=== PATIENT | female | born 1950 | race Caucasian/White ===

== ENCOUNTER → 2019-05-17 10:49 | Outpatient (CLI) | payer OTHER, SELFPAY ==
--- NOTE | ~2019-05-17 | XR_ITS ---
EXAMINATION: [id number]_CR DATE: 05/17/2019 11:21 INDICATION: Left anterior rib pain. Fall. TECHNIQUE: A frontal view of the chest and 3 views of the right ribs and 3 views of the left ribs wer e obtained. COMPARISON: Chest 2 views 04/02/2017 FINDINGS: The chest demonstrates clear lungs without pneumonia, pleural effusion, or pneumothorax. Th e heart size is normal. IMPRESSION: 1. No rib fracture. Reviewed, dictated and finalized at location A. [employer] IMPRESSION: 1. No rib fracture.
== END ==
PROVIDERS: PCP Nurse Practitioner Family; Visit Provider Nurse Practitioner Family
DX: R07.81 Pleurodynia (principal)
CPT/HCPCS: 71111

== ENCOUNTER 2019-05-18 13:36 | Emergency (ER) | payer OTHER, SELFPAY ==
[2019-05-18 13:48] VITALS: BP 140/70; PULSE 96; RESP 20; TEMP 36.5; O2SAT 94
--- NOTE | 2019-05-18 14:20 | ED.URI ---
HPI - URI/Sore Throat General Chief Complaint: Upper Respiratory Infection Stated Complaint: Sore Throat Time Seen by Provider: 05/18/19 14:15 Source: patient Mode of arrival: ambulatory Limitations: no limitations History of Present Illness HPI Narrative: Maliha Beck is a 69-year-old female with a primary medical history of schizophrenia, high cholesterol, high blood pressure, who comes to the [facility] with nasal congestion ear pain and sore throat That started 2 days ago Related Data Home Medications Medication Instructions Recorded Confirmed benztropine 1 mg PO DAILY 05/18/19 05/18/19 loxapine succinate 25 mg PO DAILY 05/18/19 05/18/19 meloxicam 7.5 mg PO DAILY 05/18/19 05/18/19 ondansetron 8 mg PO TID 05/18/19 05/18/19 propranolol 40 mg PO Q12H 05/18/19 05/18/19 simvastatin 40 mg PO DAILY 05/18/19 05/18/19 tramadol 50 mg PO TID 05/18/19 05/18/19 trazodone 50 mg PO HS 05/18/19 05/18/19 vitamin E 1,000 unit PO DAILY 05/18/19 05/18/19 Allergies Allergy/AdvReac Type Severity Reaction Status Date / Time Penicillins Allergy Unknown HIVES Verified 05/13/18 11:46 Review of Systems Review of Systems: Narrative: CONSTITUTIONAL: Denies fever, chills, sweats. EYES: Denies visual changes, redness, discharge. ENT has rhinorrhea, congestion, sore throat, bilateral otalgia. CARDIOVASCULAR: Denies chest pain, palpitations, edema. RESPIRATORY: Denies dyspnea, wheezing, mild cough GASTROINTESTINAL: Denies abdominal pain, nausea, vomiting, diarrhea. GENITOURINARY: Denies dysuria, hematuria, abnormal discharge SKIN: Denies rash or itching. MUSCULOSKELETAL: Denies acute back pain, joint pain, or myalgia. NEUROLOGIC: Denies numbness, or focal weakness. PSYCHIATRIC: Denies anxiety or depression. [facility] Family History Family History (Updated 05/18/19 @ 14:22 by Giselle Laguerre CNP) Other Mental illness in member of household Social History Social History (Updated 05/18/19 @ 14:22 by Giselle Laguerre CNP) Smoking packs per day: 2 Smoking cigarettes per day: 40.0 Smoking status: Current every day smoker Alcohol intake: former Gender identity (if verbalized by the patient): Female Comments At time of signature, I agree with nursing past medical, surgical, social and family history. There is no relevant family history pertinent to the presenting complaint. Exam Narrative: Exam Narrative: GENERAL: This is a well-nourished, well-developed patient, in mild distress. HEAD: normocephalic, atraumatic. EYES: . Sclera clear/white. Vision is grossly intact. EARS: External ears normal, auditory canals reddened and without drainage, TMs normal without perforation, bulging right TM hearing grossly intact. NOSE: External nose normal with nasal discharge, nares without redness, mild rhinorrhea. THROAT: Mucous membranes moist, posterior pharynx erythema NECK: Neck supple, non-tender CARDIOVASCULAR: Regular rate and rhythm without murmurs, gallops, or rubs. RESPIRATORY: Clear to auscultation. Breath sounds equal bilaterally. No wheezes, rales, or rhonchi. GASTROINTESTINAL: Abdomen soft, non-tender, nondistended. Bowel sounds are active. No hepato-splenomegaly, or palpable masses. No guarding. SKIN: warm, intact with no suspicious lesions or rash, good texture and turgor. NEURO: awake, alert, and oriented to person, place and time. There were no obvious focal neurologic abnormalities. Steady gait EXTREMITIES: Normal range of motion. No edema. BACK: Nontender without deformity or crepitance. No flank tenderness. Course Course Emergency Course: Viral syndrome versus otitis media versus pharyngitis versus influenza Vital Signs Vital signs: Vital Signs Temperature 97.7 F 05/18/19 13:48 Pulse Rate 96 05/18/19 13:48 Respiratory Rate 20 05/18/19 13:48 Blood Pressure 140/70 05/18/19 13:48 Pulse Oximetry 94 05/18/19 13:48 Temperature 97.7 F 05/18/19 13:48 Pulse Rate 96 05/18/19 13:48 Respirator
== END 2019-05-18 14:32 | disposition home or self-care (01) ==
PROVIDERS: Emergency Provider Nurse Practitioner; PCP Family Medicine
DX: H66.001 Acute suppurative otitis media without spontaneous rupture of ear drum, right ear (principal); J02.9 Acute pharyngitis, unspecified; F17.200 Nicotine dependence, unspecified, uncomplicated; E78.00 Pure hypercholesterolemia, unspecified; I10 Essential (primary) hypertension; M19.90 Unspecified osteoarthritis, unspecified site; H26.9 Unspecified cataract
CPT/HCPCS: 87081; 87880; 99213; G0463

== ENCOUNTER 2020-01-04 17:12 | Outpatient (CLI) | payer OTHER, SELFPAY ==
--- NOTE | ~2020-01-04 | MM_ITS ---
EXAMINATION: MM screening gage BI w man HISTORY: Screening mammogram TECHNIQUE: Craniocaudal and mediolateral oblique 3-D tomosynthesis images were obtained and synthetic 2-D images were generated. CAD analysis was submitted and interpreted. COMPARISON: 12/14/2012 BREAST PARENCHYMAL COMPOSITION: There are scattered areas of fibroglandular density. FINDINGS: RIGHT BREAST: Focal asymmetry is present in the middle third of the outer breast. LEFT BREAST: There is no evidence of suspicious mass, calcification, or architectural distortion to s uggest malignancy. There has been no significant interval change. IMPRESSION: 1. Focal asymmetry of the right breast. 2. Additional mammographic views and possible breast ultrasound are recommended. BI-RADS Category 0: Incomplete: Needs additional imaging evaluation. Reviewed, dictated and finalized at location A. IMPRESSION: 1. Focal asymmetry of the right breast. 2. Additional mammographic views and possible breast ultrasound are recommended . BI-RADS Category 0: Incomplete: Needs additional imaging evaluation.
== END 2020-01-04 17:13 | disposition home or self-care (01) ==
LOC: ANHIMG 17:14
PROVIDERS: PCP Family Medicine; Visit Provider Family Medicine
DX: Z12.31 Encounter for screening mammogram for malignant neoplasm of breast (principal); R92.8 Other abnormal and inconclusive findings on diagnostic imaging of breast
CPT/HCPCS: 77063; 77067

== ENCOUNTER 2020-08-30 18:17 | Emergency (ER) | payer OTHER, SELFPAY ==
[2020-08-30 18:28] VITALS: BP 152/77; PULSE 137; RESP 20; TEMP 37.6; O2SAT 82
[2020-08-30 19:15] VITALS: RESP 135; O2SAT 73
--- NOTE | 2020-08-30 19:34 | ED.URI ---
HPI - URI/Sore Throat General Chief Complaint: Upper Respiratory Infection Stated Complaint: SORE THROAT Time Seen by Provider: 08/30/20 19:04 Source: patient and RN notes reviewed Mode of arrival: ambulatory Limitations: no limitations History of Present Illness HPI Narrative: Patient presents today complaining of sudden onset sore throat, headache, and intermittent dizziness since this morning. States she has grandchildren that are sick and believes she was exposed to an illness from them. She came today to determine whether or not she has strep throat. She has not taken any medication for symptoms prior to arrival. Denies any additional symptoms to include fever, cough. States she does have shortness of breath when she walks upstairs, but no other shortness of breath symptoms. Her pulse ox upon arrival was 82. History of COPD, but does not wear supplemental oxygen, but does have been in her home should she need it. Patient does smoke. She declines a COVID-19 test. She declines a chest x-ray. MD elicited complaint: sore throat Related Data Home Medications Medication Instructions Recorded Confirmed loxapine succinate 25 mg PO DAILY 05/18/19 08/30/20 meloxicam 7.5 mg PO DAILY 05/18/19 08/30/20 ondansetron 8 mg PO TID 05/18/19 08/30/20 propranolol 40 mg PO Q12H 05/18/19 08/30/20 simvastatin 40 mg PO DAILY 05/18/19 08/30/20 tramadol 50 mg PO TID 05/18/19 08/30/20 trazodone 50 mg PO HS 05/18/19 08/30/20 vitamin E 1,000 unit PO DAILY 05/18/19 08/30/20 benztropine 1 mg PO DAILY 08/30/20 08/30/20 Allergies Allergy/AdvReac Type Severity Reaction Status Date / Time Penicillins Allergy Unknown HIVES Verified 05/13/18 11:46 Review of Systems Review of Systems: Narrative: CONSTITUTIONAL: Denies body aches, fever, chills, or sweats. EYES: Denies visual changes, redness, or discharge. ENT: Denies rhinorrhea, congestion, or otalgia.+ Sore throat CARDIOVASCULAR: Denies chest pain, palpitations, or edema. RESPIRATORY: Denies cough or dyspnea. GASTROINTESTINAL: Denies abdominal pain, nausea, vomiting, or diarrhea. GENITOURINARY: Denies dysuria or hematuria. SKIN: Denies rash, itching, or wounds. MUSCULOSKELETAL: Denies back pain, joint pain, or myalgia. NEUROLOGIC: Denies numbness, tingling, or weakness.+ Dizziness, headache PSYCH: Denies depression or anxiety. [facility] Past Medical History Medical History (Updated 08/30/20 @ 19:46 by Christa Wheeler, [facility], ) Bipolar disorder High cholesterol Hypertension Schizophrenia Type 2 diabetes mellitus Family History Family History (Updated 05/18/19 @ 14:22 by Giselle Laguerre CNP) Other Mental illness in member of household Social History Social History (Updated 05/18/19 @ 14:22 by Giselle Laguerre CNP) Smoking packs per day: 2 Smoking cigarettes per day: 40.0 Smoking status: Current every day smoker Alcohol intake: former Gender identity (if verbalized by the patient): Female Comments At time of signature, I have reviewed and agree with nursing past medical, surgical, social and family history unless otherwise noted. Please see nursing chart for further information. There is no relevant family history pertinent to the presenting complaint Exam Narrative: Exam Narrative: GENERAL: Ill-appearing, well-nourished, and in no acute distress. HEAD: Normocephalic, atraumatic. EYES: EOMI. No redness or drainage. Conjunctivae normal. ENT: Mucous membranes pink and moist. Nares clear. No rhinorrhea. TMs normal bilaterally. Throat is red from copious throat spray. No edema. Uvula midline. NECK: Normal AROM. Supple. No lymphadenopathy. CHEST: Respirations are labored. Rhonchi throughout. Diminished in the bilateral bases. HEART: Regular rhythm. Tachycardia. No murmur appreciated. Normal peripheral pulses. EXTREMITIES: Normal range of motion. No edema. SKIN: Warm, dry, no rash. Capillary refill normal. Normal skin turgor. NEURO: No focal deficits. Alert
== END 2020-08-30 19:15 | disposition left against medical advice (07) ==
LOC: EXPCOLL 18:20
PROVIDERS: Emergency Provider Nurse Practitioner; PCP Family Medicine
DX: J02.9 Acute pharyngitis, unspecified (principal); R09.02 Hypoxemia; F17.210 Nicotine dependence, cigarettes, uncomplicated; E78.00 Pure hypercholesterolemia, unspecified; I10 Essential (primary) hypertension; E11.9 Type 2 diabetes mellitus without complications; J44.9 Chronic obstructive pulmonary disease, unspecified
CPT/HCPCS: 87081; 87880; 99213; G0463

== ENCOUNTER 2021-11-21 10:16 | Emergency (ER) | payer OTHER, SELFPAY ==
[2021-11-21 10:25] VITALS: BP 146/75; PULSE 120; RESP 16; TEMP 36.5; O2SAT 90
--- NOTE | 2021-11-21 10:39 | ED.EAR ---
HPI - Ear Problem General Chief complaint: Ear Stated complaint: ear pain Time Seen by Provider: 11/21/21 10:39 Source: patient Mode of arrival: ambulatory Limitations: no limitations History of Present Illness HPI Narrative: 71 y/o female presented for c/o bilateral ear pain left worse than right for 5 days. Endorses left ear feels sharp pain at times and 'clicking.' Right ear feels like water inside. States she was seen by pcp 3 days ago and was told the left ear was red. She is scheduled to see ENT in January for the same complaint. Denies sinus pressure/congestion, headache, dizziness, nausea, tinnitus or fever. Not taking anything for symptoms. MD Complaint: ear pain Related Data Home Medications Medication Instructions Recorded Confirmed loxapine succinate 25 mg capsule 25 mg PO DAILY 05/18/19 11/21/21 meloxicam 7.5 mg tablet 7.5 mg PO DAILY 05/18/19 11/21/21 ondansetron 8 mg disintegrating 8 mg PO TID 05/18/19 11/21/21 tablet propranolol 40 mg tablet 40 mg PO Q12H 05/18/19 11/21/21 simvastatin 40 mg tablet 40 mg PO DAILY 05/18/19 11/21/21 tramadol 50 mg tablet 50 mg PO TID 05/18/19 11/21/21 trazodone 50 mg tablet 50 mg PO HS 05/18/19 11/21/21 vitamin E 670 mg (1,000 unit) 1,000 unit PO DAILY 05/18/19 11/21/21 capsule benztropine 1 mg tablet 1 mg PO DAILY 08/30/20 11/21/21 Allergies Allergy/AdvReac Type Severity Reaction Status Date / Time Penicillins Allergy Unknown HIVES Verified 11/21/21 10:18 Review of Systems Review of Systems: CONSTITUTIONAL: Denies malaise, chills, or fever. EYES: Denies visual changes, redness, or discharge. ENT: Denies rhinorrhea, congestion, sinus pain, and sore throat. Reports ear pain CARDIOVASCULAR: Denies chest pain, palpitations, or edema. RESPIRATORY: Denies cough or dyspnea. GASTROINTESTINAL: Denies abdominal pain, nausea, vomiting, diarrhea SKIN: Denies rash or itching. MUSCULOSKELETAL: Denies myalgia. NEUROLOGIC: Denies headache. All systems reviewed & are unremarkable except as noted in HPI and below PMFSH Past Medical History Medical History Bipolar disorder High cholesterol Hypertension Schizophrenia Type 2 diabetes mellitus Family History Family History Other Mental illness in member of household Social History Social History Smoking packs per day: 2 Smoking cigarettes per day: 40.0 Smoking status: Current every day smoker Alcohol intake: former Gender identity (if verbalized by the patient): Female Comments At time of signature, agree with nursing past medical, surgical, social and family history. There is no relevant family history pertinent to the presenting complaint Exam Narrative: GENERAL: Well-appearing HEAD: Normocephalic EYES: conjunctivae clear ENT: Nares clear. Mucous membranes moist. TMs pearly jason with normal light reflex bilaterally; no tragal tenderness. Oropharynx not erythematous without lesions. NECK: Supple. No lymphadenopathy CHEST: Clear to auscultation, breath sounds equal. HEART: Regular rate and rhythm. No murmur heard. SKIN: Warm, dry, no rash. NEURO: Alert and oriented x3. PSYCH: Normal mood and affect Course Course Emergency Course: Patient is aware of diagnosis, understands and agrees to treatment plan. Anticipatory guidance given. Patient agrees to follow-up as directed and is aware of reasons to seek care at the emergency department. Portions of this record may have been created with voice recognition software Level of Care: Express Care Visit Vital Signs Vital signs: Vital Signs Temperature 97.7 F 11/21/21 10:25 Pulse Rate 120 H 11/21/21 10:25 Respiratory Rate 16 11/21/21 10:25 Blood Pressure 146/75 H 11/21/21 10:25 Pulse Oximetry 90 11/21/21 10:25 Oxygen Delivery Room Air 11/21/21 10:25 Temperature 97
== END 2021-11-21 10:50 | disposition home or self-care (01) ==
PROVIDERS: Emergency Provider Nurse Practitioner Family; PCP Nurse Practitioner Adult Health
DX: H92.02 Otalgia, left ear (principal); E78.00 Pure hypercholesterolemia, unspecified; I10 Essential (primary) hypertension; E11.9 Type 2 diabetes mellitus without complications; F17.210 Nicotine dependence, cigarettes, uncomplicated; F20.9 Schizophrenia, unspecified
CPT/HCPCS: 99213; G0463

== ENCOUNTER 2022-04-09 11:07 | Emergency (ER) | payer OTHER, SELFPAY ==
[2022-04-09 11:26] VITALS: BP 129/81; PULSE 111; RESP 16; TEMP 36.6; O2SAT 92
--- NOTE | 2022-04-09 11:44 | ED.EAR ---
HPI - Ear Problem General Chief complaint: Upper Respiratory Infection Stated complaint: ear pain Time Seen by Provider: 04/09/22 11:44 Source: patient and RN notes reviewed Mode of arrival: ambulatory Limitations: no limitations History of Present Illness HPI Narrative: 71 y/o female presented for c/o left ear pain for 1 month, and sinus congestion and cough. Started with body aches and sneezing the past few days. Not vaccinated for covid/flu, declines testing. Denies sick contacts. Not taking anything for symptoms. Denies shortness of breath, chest pain, wheezing, nausea, vomiting, diarrhea, fevers or chills. She is scheduled with her PCP in 4 days Related Data Home Medications Medication Instructions Recorded Confirmed loxapine succinate 25 mg capsule 25 mg PO DAILY 05/18/19 04/09/22 meloxicam 7.5 mg tablet 7.5 mg PO DAILY 05/18/19 04/09/22 ondansetron 8 mg disintegrating 8 mg PO TID 05/18/19 04/09/22 tablet propranolol 40 mg tablet 40 mg PO Q12H 05/18/19 04/09/22 simvastatin 40 mg tablet 40 mg PO DAILY 05/18/19 04/09/22 tramadol 50 mg tablet 50 mg PO TID 05/18/19 04/09/22 trazodone 50 mg tablet 50 mg PO HS 05/18/19 04/09/22 vitamin E 670 mg (1,000 unit) 1,000 unit PO DAILY 05/18/19 04/09/22 capsule Allergies Allergy/AdvReac Type Severity Reaction Status Date / Time Penicillins Allergy Intermediate HIVES Verified 04/09/22 11:11 Review of Systems Review of Systems: Per HPI [facility] Past Medical History Medical History Bipolar disorder High cholesterol Hypertension Schizophrenia Type 2 diabetes mellitus Family History Family History Other Mental illness in member of household Social History Social History Smoking packs per day: 2 Smoking cigarettes per day: 40.0 Smoking status: Current every day smoker Alcohol intake: former Gender identity (if verbalized by the patient): Female Exam Narrative: GENERAL: Ill-appearing, nontoxic no acute distress. HEAD: Normocephalic EYES: PERRLA, conjunctivae clear ENT: Mucous membranes moist. TM pearly jason with dull light reflex bilaterally; no tragal tenderness. Oropharynx erythematous without lesions or exudate NECK: Supple. No lymphadenopathy CHEST: Right lung coarse, with exp wheezing, No respiratory distress, speaks in full sentences. HEART: Regular rate and rhythm. SKIN: Warm, dry, no rash. NEURO: Alert and oriented x3. PSYCH: Normal mood and affect Course Course Emergency Course: Patient is aware of diagnosis, understands and agrees to treatment plan. Anticipatory guidance given. Patient agrees to follow-up as directed and is aware of reasons to seek care at the emergency department. Portions of this record may have been created with voice recognition software Level of Care: Express Care Visit Vital Signs Vital signs: Vital Signs Temperature 97.9 F 04/09/22 11:26 Pulse Rate 111 H 04/09/22 11:26 Respiratory Rate 16 04/09/22 11:26 Blood Pressure 129/81 04/09/22 11:26 Pulse Oximetry 92 04/09/22 11:26 Oxygen Delivery Room Air 04/09/22 11:26 Temperature 97.9 F 04/09/22 11:26 Pulse Rate 111 H 04/09/22 11:26 Respiratory Rate 16 04/09/22 11:26 Blood Pressure 129/81 04/09/22 11:26 Pulse Oximetry 92 04/09/22 11:26 Oxygen Delivery Room Air 04/09/22 11:26 reviewed Medical Decision Making MDM Narrative Medical decision making narrative: Advised supportive measures and signs/symptoms to go to the ER. Pt is appropriate for outpt treatment and f/u. Differential Diagnosis Differential Diagnosis: Influenza, bronchitis, pneumonia Vital Signs Vital Signs: Vital Signs Temperature 97.9 F 04/09/22 11:26 Pulse Rate 111 H 04/09/22 11:26 Respiratory Rate 16 04/09/22 11:26 Blood Pressure 129/81 04/09/22 11:26 Pulse Oxim
== END 2022-04-09 11:56 | disposition home or self-care (01) ==
PROVIDERS: Emergency Provider Nurse Practitioner Family; PCP Family Medicine
DX: J06.9 Acute upper respiratory infection, unspecified (principal); I10 Essential (primary) hypertension; E78.00 Pure hypercholesterolemia, unspecified; E11.9 Type 2 diabetes mellitus without complications; F20.9 Schizophrenia, unspecified; F17.210 Nicotine dependence, cigarettes, uncomplicated
CPT/HCPCS: 99213; G0463

== ENCOUNTER 2022-05-22 02:05 | Day surgery (SDC) | payer OTHER, SELFPAY ==
[2022-05-07 08:40] VITALS: BMI 19.5
[2022-05-22 10:11] VITALS: BP 137/72; PULSE 100; RESP 21; TEMP 36.2; O2SAT 83
--- NOTE | 2022-05-22 10:26 | WPDANESEPPF ---
Anes - Initial Pre Proc Eval Procedure: Operation Date: 05/22/22 11:30 Proposed Procedures p Esophagogastroduodenoscopy - Leon Claros MD Date/Time: 05/22/22 10:26 Surgeon: Leon Claros MD Pre Op Diagnosis: dysphagia Patient Data Age: 72 Gender: F Height: 1.6 m Weight: 51.7 kg Last Vital Signs Temp 36.2 C L 05/22/22 10:11 Pulse 100 05/22/22 10:11 Resp 21 H 05/22/22 10:11 BP 137/72 05/22/22 10:11 Pulse Ox 83 L 05/22/22 10:11 O2 Del Method Room Air 05/22/22 10:11 Allergies Allergy/AdvReac Type Severity Reaction Status Date / Time Penicillins Allergy Intermediate HIVES Verified 05/22/22 10:09 levothyroxine AdvReac Vomiting Verified 05/22/22 10:09 Home Medications Medication Instructions Recorded Confirmed Type loxapine succinate 25 mg capsule 30 mg PO DAILY 05/18/19 05/07/22 History simvastatin 40 mg tablet 40 mg PO DAILY 05/18/19 05/07/22 History tramadol 50 mg tablet 50 mg PO TID PRN Pain 05/18/19 05/07/22 History Lactobacillus 1 cap PO DAILY 05/07/22 05/07/22 History acidophilus-Bifidobac.animalis 2.5 billion cell capsule (Daily Probiotic) albuterol sulfate 2.5 mg/3 mL 2.5 mg inhalation DAILY PRN 05/07/22 05/07/22 History (0.083 %) solution for nebulization Shortness Of Breath cranberry extract 250 mg tablet 250 mg PO DAILY 05/07/22 05/07/22 History furosemide 20 mg tablet 20 mg PO DAILY 05/07/22 05/07/22 History meloxicam 15 mg tablet 15 mg PO DAILY 05/07/22 05/07/22 History omega-3 fatty acids 1,000 mg PO DAILY 05/07/22 05/07/22 History sodium chloride 0.65 % nasal spray 2 spray intranasal BID 05/07/22 05/07/22 History aerosol (Saline Nasal) Patient hx anesthesia problems: none Family hx anesthesia problems: none Results Review: All pre-operative results and documents have been reviewed as part of the pre-operative evaluation. PMFSH Past Medical History Medical History Bipolar disorder High cholesterol Hypertension Schizophrenia Type 2 diabetes mellitus Family History Family History Other Mental illness in member of household Social History Social History Smoking packs per day: 2 Smoking cigarettes per day: 40.0 Smoking status: Current every day smoker Tobacco type: cigarettes Alcohol intake: former Substance use type: does not use Living arrangements: with family Gender identity (if verbalized by the patient): Female Spiritual care concerns: No Anes - Eval Final PreProcedure Day of Procedure 05/22/22 10:26 Patient weight: normal Heart: regular rate and rhythm Lungs: decreased breath sounds Airway: Mallampati scale class II Neurological: alert and oriented Last oral intake: >/= 8 hours ASA classification: III Emergent: no Anesthetic plan: proceed Anesthesia type and monitoring: general GIVS and standard monitoring Results Review: All pre-operative results and documents have been reviewed as part of the pre-operative evaluation. Informed Consent: The patient's anesthetic plan and its attendant risks and benefits were discussed with the patient/family/POA. Questions were solicited and answers provided to the satisfaction of the patient/family/POA.
[2022-05-22] MEDS: LACTATED RINGERS 1,000 ML 150 ML IV CONT (10:29)
--- NOTE | 2022-05-22 10:33 | PM.HPGS ---
History of Present Illness History of Present Illness Consent: Risks, benefits, and alternatives have been discussed and questions answered. Patient agrees to proceed with procedure. Chief complaint: dysphagia Narrative: Maliha Beck is a 72 year old female here for egd because dysphagia to solids for about 2 months, had egd but about 7 years ago Review of Systems Constitutional: Constitutional: Denies headache(s) and Denies weakness Eyes: Eyes: Denies blurry vision ENT: Reports Normal hearing present, Denies headache(s) and Denies neck pain Cardiovascular: Cardiovascular: Denies chest pain and Denies dyspnea Respiratory: Respiratory: Denies dyspnea Gastrointestinal: Gastrointestinal: Reports no additional gastrointestinal complaints Genitourinary: Genitourinary: Denies dysuria Musculoskeletal: Musculoskeletal: Denies neck pain Integumentary/Breasts: Skin/Breast: Denies dry skin Neurologic: Reports Normal hearing present, Denies headache(s) and Denies weakness Psychiatric: Psychiatric: Denies anxiety Endocrine: Endocrine: Denies change in body appearance Hematologic/Lymphatic: Hematologic/Lymphatic: Denies easy bleeding Allergic/Immunologic: Allergic/Immunologic: Denies urticaria [facility] Past Medical History Medical History (Updated 05/22/22 @ 10:34 by Leon Claros MD) Bipolar disorder Dysphagia High cholesterol Hypertension Schizophrenia Type 2 diabetes mellitus Family History Family History Other Mental illness in member of household Social History Social History Smoking packs per day: 2 Smoking cigarettes per day: 40.0 Smoking status: Current every day smoker Tobacco type: cigarettes Alcohol intake: former Substance use type: does not use Living arrangements: with family Gender identity (if verbalized by the patient): Female Spiritual care concerns: No Meds Home Medications and Allergies Home Medications Medication Instructions Recorded Confirmed Type loxapine succinate 25 mg capsule 30 mg PO DAILY 05/18/19 05/07/22 History simvastatin 40 mg tablet 40 mg PO DAILY 05/18/19 05/07/22 History tramadol 50 mg tablet 50 mg PO TID PRN Pain 05/18/19 05/07/22 History Lactobacillus 1 cap PO DAILY 05/07/22 05/07/22 History acidophilus-Bifidobac.animalis 2.5 billion cell capsule (Daily Probiotic) albuterol sulfate 2.5 mg/3 mL 2.5 mg inhalation DAILY PRN 05/07/22 05/07/22 History (0.083 %) solution for nebulization Shortness Of Breath cranberry extract 250 mg tablet 250 mg PO DAILY 05/07/22 05/07/22 History furosemide 20 mg tablet 20 mg PO DAILY 05/07/22 05/07/22 History meloxicam 15 mg tablet 15 mg PO DAILY 05/07/22 05/07/22 History omega-3 fatty acids 1,000 mg PO DAILY 05/07/22 05/07/22 History sodium chloride 0.65 % nasal spray 2 spray intranasal BID 05/07/22 05/07/22 History aerosol (Saline Nasal) Allergies Allergy/AdvReac Type Severity Reaction Status Date / Time Penicillins Allergy Intermediate HIVES Verified 05/22/22 10:09 levothyroxine AdvReac Vomiting Verified 05/22/22 10:09 Vital Signs Vital Signs - 24 hr 05/22/22 10:11 Temperature 97.2 F L Pulse Rate 100 Respiratory Rate 21 H Blood Pressure 137/72 Pulse Oximetry 83 L Oxygen Delivery Room Air Exam Const: General: comfortable and no acute distress HENMT: Face/Nose/Sinus: Normal nares present Eyes: General: appearance normal, both eyes and all related structures Neck: Neck: no JVD Resp: Auscultation: clear to auscultation bilaterally Cardio: Rate: regular rate Rhythm: regular rhythm GI: Inspection: non-distended GI Palp: Yes Soft to palpation Skin: General skin exam: normal color Neuro: General: gait normal Speech: normal speech Extrem: General: normal to inspection Psych: Mental Status: mental status grossly normal Assessment a
[2022-05-22 10:45] VITALS: BP 102/69; PULSE 92; RESP 20; O2SAT 96
[2022-05-22 10:55] VITALS: BP 135/90; PULSE 87; RESP 20; O2SAT 94
[2022-05-22 11:05] VITALS: BP 121/77; PULSE 87; RESP 20; O2SAT 92
== END 2022-05-22 11:23 | disposition home or self-care (01) ==
PROVIDERS: PCP Family Medicine; Visit Provider Internal Medicine Gastroenterology
PROC: 0DJ08ZZ Inspection of Upper Intestinal Tract, Via Natural or Artificial Opening Endoscopic (ICD-10-PCS; CPT 43235; principal; 2022-05-22 11:30)
DX: R13.10 Dysphagia, unspecified (principal); K29.70 Gastritis, unspecified, without bleeding; I10 Essential (primary) hypertension; E78.00 Pure hypercholesterolemia, unspecified; E11.9 Type 2 diabetes mellitus without complications; F20.9 Schizophrenia, unspecified; F31.9 Bipolar disorder, unspecified; F17.210 Nicotine dependence, cigarettes, uncomplicated; Z79.51 Long term (current) use of inhaled steroids
CPT/HCPCS: 43239; 43248; 88305; J7120

== ENCOUNTER 2022-07-02 09:11 | Inpatient (IN) | payer OTHER, SELFPAY ==
[2022-07-02] VITALS (22 sets, daily range): BP systolic 120–149; BP diastolic 69–91; PULSE 60–102; RESP 16–26; TEMP 36.4–37.6; O2SAT 76–100; BMI 19.1
--- NOTE | 2022-07-02 | ECHO_ITS ---
Patient Info Name: Maliha Beck Age: 72 years : 1950 Gender: Female Ht: 64 in Wt: 111 lbs BSA: 1.50 m2 HR: 94 bpm BP: 121 / 69 mmHg Technical Quality: Fair Exam Date: 07/02/2022 3:52 PM Exam Location: [facility] Pulmonary Exam Room: [facility] Patient Status: Outpatient Admit Date: 07/02/2022 Staff Ordering Physician: Renee Marques NP Potato Bucker: Maliha Heath RCS Attending Provider: Paul Faulkner MD Referring Physician: Jerald HADDAD; Exam Type: CA echo doppler color flow Study Info Indications - chf copd Complete two-dimensional, color flow and Doppler transthoracic echocardiogram is performed. Summary 1. Complete two-dimensional, color flow and Doppler transthoracic echocardiogram is performed. 2. Left ventricular chamber dimension is severely enlarged. 3. Left ventricular systolic function is severely globally reduced, estimated at 15-20%. 4. The left ventricular diastolic function is grade II diastolic dysfunction. 5. E/e' 15 is elevated. 6. Global longitudinal strain is abnormal at -9.5%. 7. Left atrial chamber dimension is moderately enlarged. 8. Right atrial chamber dimension is mildly enlarged. 9. There is mild aortic valve sclerosis. 10. The mitral valve has mildly thickened leaflets. 11. There is mild mitral valve regurgitation. 12. There is trace tricuspid valve regurgitation. 13. Mild pulmonary hypertension, estimated pulmonary arterial systolic pressure is 42 mmHg. Left Ventricle E/e' 15 is elevated. Global longitudinal strain is abnormal at -9.5%. Left ventricular systolic function is severely globally reduced, estimated at 15-20%. Left ventricular chamber dimension is severely enlarged. The left ventricular diastolic function is grade II diastolic dysfunction. Right Ventricle Right ventricular systolic function is normal and with normal TAPSE 2.1 cm. Right ventricular chamber dimension is normal. Left Atria Left atrial chamber dimension is moderately enlarged. Right Atria Right atrial chamber dimension is mildly enlarged. Aortic Valve The aortic valve is trileaflet. There is mild aortic valve sclerosis. There is no aortic valve stenosis. There is no aortic valve regurgitation. Pulmonic Valve There is no pulmonic regurgitation. Mitral Valve The mitral valve has mildly thickened leaflets. There is no mitral valve stenosis. There is mild mitral valve regurgitation. Tricuspid Valve There is trace tricuspid valve regurgitation. Mild pulmonary hypertension, estimated pulmonary arterial systolic pressure is 42 mmHg. Pericardium/Pleural There is no pericardial effusion. Inferior Vena Cava Normal inferior vena cava with >50% collapse upon inspiration consistent with normal right atrial pressure, 5 mmHg. Aorta The aortic root size at the sinus of Valsalva is normal. Left Ventricular Outflow Tract Name Value Normal LVOT 2D LVOT Diameter 2.0 cm LVOT Doppler LVOT Peak Gradient 6 mmHg LVOT Mean Gradient 3 mmHg LVOT VTI 20 cm
--- NOTE | ~2022-07-02 | XR_ITS ---
EXAMINATION: XR chest 2V DATE: 07/02/2022 11:22 INDICATION: Shortness of breath. TECHNIQUE: Frontal and lateral views of the chest were obtained. COMPARISON: Chest 2 views 04/02/2017, chest CT 07/02/2022 FINDINGS: There is a diffuse interstitial pattern, consistent with mild pulmonary edema. There is mil d atelectasis in right middle lobe and right lower lobe. There are small pleural effusions. No pneumo thorax. Cardiomegaly is noted. There is enlargement of right hilum. IMPRESSION: 1. Enlargement of right hilum suspicious for lymphadenopathy versus enlarged pulmonary artery. Chest CT is recommended. 2. Mild pulmonary edema. 3. Small pleural effusions. 4. Cardiomegaly. Reviewed, dictated and finalized at location A. IMPRESSION: 1. Enlargement of right hilum suspicious for lymphadenopathy versus enlarged pu lmonary artery. Chest CT is recommended. 2. Mild pulmonary edema. 3. Small pleural effusions. 4. Cardiomegaly.
--- NOTE | ~2022-07-02 | US_ITS ---
EXAMINATION: US venous doppler [facility] DATE: 07/02/2022 22:42 INDICATION: Lower limb edema TECHNIQUE: [place] scale images without and with compression and Doppler images of the bilateral lower e xtremity veins were obtained. COMPARISON: None FINDINGS: The right common femoral vein, profunda femoral vein, femoral vein, popliteal vein, peroneal trunk, p osterior tibial veins, and greater saphenous vein are patent. The left common femoral vein, profunda femoral vein, femoral vein, popliteal vein, peroneal trunk, po sterior tibial veins, and greater saphenous vein are patent. IMPRESSION: 1. Patent bilateral lower extremity veins. No evidence of deep venous thrombosis. Reviewed, dictated and finalized at location F. IMPRESSION: 1. Patent bilateral lower extremity veins. No evidence of deep venous thrombosi s.
--- NOTE | ~2022-07-02 | XR_ITS ---
Portable chest x-ray Comparison: 07/02/2022 Clinical History: Right middle lobe collapse Findings: There is extensive interstitial prominence in the lungs. Probable linear bibasilar scarrin g present. Cardiomediastinal silhouette is stable. Bones and soft tissues are unremarkable. Impression: Probable diffuse chronic interstitial disease. Correlate for interstitial edema or interstitial infec tion. Linear bibasilar scarring. Reviewed, dictated and finalized at location . Impression: Probable diffuse chronic interstitial disease. Correlate for interstitial edema or interstitial infection. Linear bibasilar scarring.
--- NOTE | ~2022-07-02 | XR_ITS ---
EXAMINATION: XR chest 2V DATE: 07/05/2022 08:43 INDICATION: Chronic obstructive pulmonary disease. TECHNIQUE: Frontal and lateral views of the chest were obtained. COMPARISON: Chest one view 07/03/2022, chest CT 07/02/2022 FINDINGS: The lungs are hyperexpanded with lucencies, consistent with emphysema. Marleni B-lines are n oted, consistent with mild pulmonary edema. There is collapse of right middle lobe. There are trace p leural effusions. No pneumothorax. Cardiomegaly is noted. IMPRESSION: 1. Persistent collapse of right lung middle lobe. 2. Mild pulmonary edema with trace pleural effusions. 3. Emphysema. 4. Cardiomegaly. Reviewed, dictated and finalized at location A.
--- NOTE | ~2022-07-02 | CT_ITS ---
EXAMINATION:CT diagnostic chest wo con DATE: 07/02/2022 11:48 INDICATION: Hilar adenopathy. TECHNIQUE: Computed tomography (CT) of the chest was performed without intravenous contrast. Automate d exposure control and iterative reconstruction technique were employed. The dose-length product (DLP ) was 146.38 mGy-cm. COMPARISON: Chest 2 views 07/02/2022 FINDINGS: There is moderate emphysema. There is smooth septal thickening, consistent with mild pulmon donato edema. There is mild atelectasis bilaterally. There is complete collapse of right middle lobe. Th ere are small pleural effusions. Cardiomegaly is noted. There are coronary artery calcifications. No pericardial effusion. Body wall edema is noted. The central pulmonary arteries are enlarged, consiste nt with pulmonary arterial hypertension. There is mild mediastinal lymphadenopathy. There is thymic h yperplasia in the anterior mediastinum. There is severe cervical and thoracic spondylosis. There is m ild chronic anterior wedging of multiple vertebral bodies. IMPRESSION: 1. Mild pulmonary edema. 2. Small pleural effusions. 3. Moderate emphysema. 4. Complete collapse of right lung middle lobe. 5. Cardiomegaly. 6. Mild mediastinal lymphadenopathy, likely reactive. Reviewed, dictated and finalized at location A.
--- NOTE | 2022-07-02 09:37 | ECG_ITS ---
Measurements Intervals [place]onson Rate: 100 P: 84 OK: 155 QRS: 57 QRSD: 79 T: 64 QT: 335 QTc: 433 Interpretive Statements SINUS TACHYCARDIA VENTRICULAR PREMATURE COMPLEX VOLTAGE CRITERIA FOR LVH CANNOT RULE OUT SEPTAL INFARCT, AGE INDETERMINATE BASELINE WANDER- V2, V4 ABNORMAL ECG NO PREVIOUS ECG AVAILABLE FOR COMPARISON Electronically Signed On 07-02-2022 9:47:56 CDT by Adrian Love D.O.
[2022-07-02] MEDS: LEVALBUTEROL NEB 1.25 MG/3 ML 2.5 MG INHALATION (09:45)
[2022-07-02] MEDS: IPRATROPIUM BR 0.02% INH SOLN 0.5 MG/2.5 ML VIAL 1.5 MG INHALATION (09:45)
[2022-07-02 09:53] LABS: Base Excess ABG 1.6 mEq/l (+/-2.0); Fractional Inspired Oxygen 36 %; HCO3 ABG 28.4 mEq/l (22.0-26.0); Oxygen Content ABG 21.9 %vol (16.0-22.0); Oxygen Saturation ABG 95.1 % (95.0-100.0); PCO2 ABG 52.7 mmHg (35.0-45.0); PO2 ABG 79.6 mmHg (80.0-100.0); PO2 FiO2 Ratio Arterial Blood 2.21 %; Total Hemoglobin 16.9 g/dL (12.0-18.0)
[2022-07-02 09:54] LABS: Device NASAL CANNULA; Modified Allen's Test Pass; Site Drawn RIGHT RADIAL
[2022-07-02 09:58] LABS: Basophils Percent Auto 0.5 % (0.2-1.2); Hematocrit 55.4 % (37.0-47.0); Hemoglobin 17.4 g/dL (12.0-15.0); Immature Platelet Fraction Pct 4.9 % (0.9-11.2); Lymphocytes Absolute Auto 1.56 K/mm3 (0.9-3.2); Lymphocytes Percent Auto 40.6 % (18.3-44.2); Mean Corpuscular HGB Conc 31.4 g/dl (32-36); Mean Corpuscular Hemoglobin 31.3 pg (26-34); Mean Corpuscular Volume 99.6 fl (80-100); Mean Platelet Volume 11.1 fl (7.4-10.4); Monocytes Absolute Auto 0.5 K/mm3 (0.1-0.6); Monocytes Percent Auto 11.7 % (2.6-8.5); Neutrophils Absolute Auto 1.8 K/mm3 (1.3-6.7); Neutrophils Percent Auto 47.2 % (45.5-73.1); Platelet Count Result 101 k/mm3 (150-375); Red Blood Count 5.56 M/mm3 (4.2-5.4); Red Cell Distribution Width 15.4 % (11.5-14.5); White Blood Count 3.8 K/mm3 (4.5-10.0)
[2022-07-02 10:41] LABS: Alanine Aminotransferase 44 U/L (6-35); Albumin Level 3.5 g/dL (3.5-5.1); Alkaline Phosphatase 122 U/L (38-126); Anion Gap 2 mmol/L (8-16); Aspartate Amino Transferase 49 U/L (14-36); Bilirubin,Total 1.1 mg/dL (0.2-1.3); Blood Urea Nitrogen 15 mg/dL (7-17); Calcium 8.1 mg/dL (8.4-10.2); Carbon Dioxide 37 mmol/L (22-30); Chloride 101 mmol/L (98-107); Estimated CRCL calculation 70 ml/min; Estimated Glomerular Filt Rate > 60; Glucose 90 mg/dL (65-110); Sodium 140 mmol/L (137-145)
[2022-07-02 10:45] LABS: INR 1.1; Prothrombin Time 13.6 Seconds (11.1-14.7)
[2022-07-02 10:46] LABS: Partial Thromboplastin Time 33.4 SECONDS (22.3-36.8)
[2022-07-02 10:50] LABS: NT Pro B Type Natriuretic Pept 9420 pg/mL (19.9-100)
--- NOTE | 2022-07-02 11:40 | ED.GENADULT ---
HPI - General Adult General Chief complaint: Eye Problems Stated complaint: post surgical eye issue - [facility] doctor Time Seen by Provider: 07/02/22 09:19 History of Present Illness HPI narrative: Patient is a 72-year-old female who presents ER with 2 issues. First issue is that she was bleeding from her right eyelid. She had a cyst removed yesterday by an bag bailer at [facility]. She noticed some bleeding today. No pain in the eye no change in vision. It is no longer bleeding. Upon arrival here patient found to be hypoxic in the 70s on room air. Patient is known to have COPD. Patient has had some increased edema in her legs but cannot tell me how long its been going on. She does have orthopnea. Mild cough. No fevers or chills or sweats. Related Data Home Medications Medication Instructions Recorded Confirmed loxapine succinate 25 mg capsule 30 mg PO HS 05/18/19 07/02/22 tramadol 50 mg tablet 50 mg PO TID PRN Pain 05/18/19 07/02/22 Lactobacillus 1 cap PO DAILY 05/07/22 07/02/22 acidophilus-Bifidobac.animalis 2.5 billion cell capsule (Daily Probiotic) albuterol sulfate 2.5 mg/3 mL 2.5 mg inhalation DAILY PRN 05/07/22 07/02/22 (0.083 %) solution for nebulization Shortness Of Breath cranberry extract 250 mg tablet 250 mg PO DAILY 05/07/22 07/02/22 furosemide 20 mg tablet 20 mg PO DAILY 05/07/22 07/02/22 meloxicam 15 mg tablet 15 mg PO DAILY PRN Headache 05/07/22 07/02/22 omega-3 fatty acids 1,000 mg PO DAILY 05/07/22 07/02/22 sodium chloride 0.65 % nasal spray 2 spray intranasal BID 05/07/22 07/02/22 aerosol (Saline Nasal) erythromycin 2 % topical ointment 1 ea topical Q12H 07/02/22 07/02/22 lovastatin 20 mg tablet 20 mg PO DAILY 07/02/22 07/02/22 Allergies Allergy/AdvReac Type Severity Reaction Status Date / Time Penicillins Allergy Intermediate HIVES Verified 07/02/22 14:11 levofloxacin Allergy Nausea and Verified 07/02/22 14:11 Vomiting Review of Systems Review of Systems: All systems reviewed & are unremarkable except as noted in HPI and below Constitutional: Constitutional: Denies chills, Denies fatigue and Denies fever(s) Eyes: Eyes: Denies change in vision and Denies photophobia Comments: Bleeding from right eyelid ENT: Denies nasal congestion and Denies sore throat Cardiovascular: Cardiovascular: Denies chest pain, Denies rapid heart rate and Denies radiating jaw, neck or arm pain Respiratory: Respiratory: Reports cough, Reports dyspnea and Reports wheezing Gastrointestinal: Gastrointestinal: Denies abdominal pain, Denies nausea and Denies vomiting [facility] Past Medical History Medical History (Updated 07/02/22 @ 18:08 by Eulalio Oliveira MD) Bipolar disorder CHF (congestive heart failure), NYHA class I Chronic obstructive pulmonary disease Dysphagia High cholesterol History of esophageal dilatation Hypertension Personal history of nicotine dependence Schizophrenia Surgical History Surgical History (Updated 07/02/22 @ 14:46 by Renee Marques NP) H/O eye surgery H/O tubal ligation History of cataract extraction Family History Family History Mother CHF (congestive heart failure), NYHA class I Father Mental disorder Social History Social History (Updated 07/02/22 @ 14:51 by Renee Marques NP) Social History: She lives with daughter and 4 grandkids she is disabled and she is . She had 10 children and only 9 are living. The patient stated that she just stopped smoking a couple days ago. Code status full code Smoking packs per day: 2 Smoking cigarettes per day: 40.0 Smoking status: Former smoker Tobacco type: cigarettes Smoking end date: 06/26/22 Alcohol intake: never Substance use: never Substance use type: does not use Lack of Transportation: No Lack of Food: Never True Current Housing: I Have Housing Concerned About Future Housing: No Difficulty Pa
--- NOTE | 2022-07-02 11:45 | PC.NURSE ---
Patient in CT.
[2022-07-02] MEDS: FUROSEMIDE INJ 40 MG/4 ML VIAL IV PUSH ×2 (11:52→20:33)
--- NOTE | 2022-07-02 13:00 | PM.IMHP ---
H&P: HPI History of Present Illness Date/Time: 07/02/22 13:00 Chief Complaint: eye problem Narrative: This is a 72-year-old female patient who came to the emergency room due to bleeding from her right eyelid. The patient had a cyst removed yesterday by the stud beef cattle farmer at [facility] peer she noticed bleeding today from not right eyelid. She does not have any pain are change in vision. The patient's right I did stop bleeding on its own. Upon arrival to the emergency room the patient was found to be hypoxic. The patient's SpO2 was found to be 77 room air. She does have known COPD. Patient had also has increased edema to her lower extremities. She stated that her legs have been swollen for the last year. No fever chills. No nausea vomiting or diarrhea. No orthopnea. H&H of 17.4 and 35.4. Platelets 101. BNP is 9420. Chest x-ray read as the following?Enlargement of right hilum suspicious for lymphadenopathy versus enlarged pulmonary artery. Chest CT is recommended. 2. Mild pulmonary edema. 3. Small pleural effusions. 4. Cardiomegaly. Chest CT was read as the following. Mild pulmonary edema. 2. Small pleural effusions. 3. Moderate emphysema. 4. Complete collapse of right lung middle lobe. 5. Cardiomegaly. 6. The patient mild mediastinal lymphadenopathy, likely reactive. The patient was placed on oxygen at 5 L per nasal cannula. The patient stated that she is waiting for her home oxygen and has been waiting for 6 months now and has not been able to get her oxygen. Patient was given a nebulizer treatment and Lasix in the emergency room. The patient is being admitted to observation on the date of service of 07/02/2022. Review of Systems Review of Systems: All systems reviewed & are unremarkable except as noted in HPI and below Constitutional: Constitutional: Reports as per HPI and Reports no additional constitutional complaints Eyes: Eyes: Reports as per HPI and Reports no additional eye complaints ENT: Reports system reviewed and no additional complaints, except as documented and Reports Normal hearing present Cardiovascular: Cardiovascular: Reports no additional cardiovascular complaints Respiratory: Respiratory: Reports no additional respiratory complaints and Reports no additional respiratory complaints Gastrointestinal: Gastrointestinal: Reports as per HPI and Reports no additional gastrointestinal complaints Musculoskeletal: Musculoskeletal: Reports no additional musculoskeletal complaints Integumentary/Breasts: Skin/Breast: Reports system reviewed and no additional complaints, except as docu and Reports as per HPI Neurologic: Reports system reviewed and no additional complaints, except as documented, Reports as per HPI and Reports Normal hearing present Psychiatric: Psychiatric: Reports no additional psychiatric complaints and Reports as per HPI Endocrine: Endocrine: Reports no additional endocrine complaints Hematologic/Lymphatic: Hematologic/Lymphatic: Reports no additional hematologic/lymphatic complaints Allergic/Immunologic: Allergic/Immunologic: Reports no additional allergic/immunologic complaints [facility] Past Medical History Medical History (Updated 07/02/22 @ 15:00 by Renee Marques NP) Bipolar disorder CHF (congestive heart failure), NYHA class I Chronic obstructive pulmonary disease Dysphagia High cholesterol History of esophageal dilatation Hypertension Personal history of nicotine dependence Schizophrenia Surgical History Surgical History (Updated 07/02/22 @ 14:46 by Renee Marques NP) H/O eye surgery H/O tubal ligation History of cataract extraction Family History Family History Mother CHF (congestive heart failure), NYHA class I Father Mental disorder Social History Social History (Updated 07/02/22 @ 14:51 by Renee Marques NP) Social History: She lives with daughter and 4 grandkids she is disabled and
--- NOTE | 2022-07-02 14:11 | ADMGEN ---
This patient, Maliha Beck, was admitted to [facility] Surg Room 331-01. Patient/family oriented to hospital policies and general routines including ID bracelet, bed and alarms, visiting hours, pain management, procedures, bathroom and other care routines, personal items, smoking policy, room service/diet, and visiting hours. Information on how to activate the Rapid Response Team has been discussed. Patient/Family are encouraged to report perceived risks to care and to ask questions if they do not understand what they are told or what they should do.
--- NOTE | 2022-07-02 15:08 | PM.CNPUL ---
Assessment and Plan Assessment and plan (1) Chronic obstructive pulmonary disease: Code(s): J44.9 - Chronic obstructive pulmonary disease, unspecified Status: Acute Assessment and Plan: patient carries a diagnosis of COPD with a 26 pack year history of tobacco smoking, quit 6 days ago, CT scan of the chest shows apical predominant moderate centrilobular emphysema. At baseline she can walk 2 blocks. The patient was in the process of getting home O2 set up for hypoxemia. ABG on 4 L nasal cannula 7.35/53/80. I will eventually repeat a blood gas to assess her hypercarbia Currently the patient presents after an eye operation for bleeding from the eyelid and she also had shortness of breath, wheezing, no change in her cough and improved phlegm over the last 6 days since she quit smoking. She was treated for COPD exacerbation with bronchodilators, Solu-Medrol. the patient is also find to have right middle lobe collapse. The patient may be having a COPD exacerbation and at this time I will decrease the Solu-Medrol to 20 mg IV q.6, I will continue albuterol and ipratropium nebulizers q.4 hours for bronchospasm as well as mucus plugging, I will initiate azithromycin for possible tracheobronchitis. I will also add Mucinex 1200 mg p.o. b.i.d., vest therapy and Cornet flutter valve to help with sputum expectoration. I will repeat a chest x-ray in the morning. currently patient is on 2 L nasal cannula at rest with saturations 91 and 92%. patient presents with edema, orthopnea, nocturia 2-3 times a night with no paroxysmal nocturnal dyspnea. Agree with echocardiogram. LE dopplers, and aggressive diuresis per hospitalist team. Will follow with you (2) Lung collapse: Code(s): J98.19 - Other pulmonary collapse Status: Acute Assessment and Plan: CT scan demonstrates right middle lobe collapse with mild mediastinal lymphadenopathy. She has a chronic cough and actually has improved phlegm since last Wednesday when she quit smoking. I will treat her aggressively for mucus plugging with bronchodilators, antibiotics, guaifenesin, Cornet flutter valve and vest therapy. I will chest cut edge portable chest x-ray in the morning and if there is no response by tomorrow I will add dornase. History of Present Illness History of Present Illness Consult date: 07/02/22 Chief complaint: CHF Exacerbation,Hypoxia,RML Collapse Narrative: 07/02/2022: This is a new pulmonary consult for COPD with right middle lobe collapse. 72-year-old with a history of COPD, neuropathy, hyperlipidemia, schizophrenia, seasonal allergic rhinitis, osteoarthritis, dysphagia recently had EGD dilation last month without webs or stricture seen. Patient was seen in the Pulmonary Clinic on 06/23/2022 and regarding her COPD, 26 pack years, Supposed to be on home oxygen but this has never been set up previously. she was on albuterol rescue nebulizers p.r.n. PCP note stated she needed continuous oxygen but needs to complete a walking assessment. She had dyspnea on exertion and expiratory wheezing. Recommendations were for PFTs, 6 minutes walk, echocardiogram and CT chest without. She did not want to complete the PFTs or CT of the chest was a curable to the 6 minutes walk and the echo. Recommendation was a trial of maintenance inhalers and she declined. Smoking cessation was provided at baseline the patient states she can walk 2 blocks. She intermittently has wheezing at home. The patient tells me she quit smoking 6 days ago. She inter to Mitten latex albuterol nebulizers and takes 1 nebulizer about every 6 days. Patient had her right eye cyst removed from her eyelid 07/01 and was in her usual state of health from a breathing perspective. She slept well overnight and this morning when she woke up she was breathing at her baseline and then noticed that she had blood coming from her right eyelid and this got her upset and when she gets upset this c
--- NOTE | 2022-07-02 15:20 | PHAR ---
HOME MEDICATION VERIFIED BY PHARMACY: LOXAPINE 25 MG CAPSULES (3) LOXAPINE 5MG CAPSULES (3)
--- NOTE | 2022-07-02 15:38 | PHAR ---
HOME MED: ERYTHROMYCIN OPTHALMIC OINTMENT 3.5 G; APPLY A THIN LAYER IN RIGHT EYE TWICE DAILY. VERIFIED BY PHARMACY.
[2022-07-02] MEDS: IPRATROPIUM BR 0.02% INH SOLN 0.5 MG/2.5 ML VIAL INHALATION ×2 (16:49→21:18)
[2022-07-02] MEDS: methylPREDNISolone SOD SUCC 125 MG VIAL 20 MG IV PUSH (17:23)
[2022-07-02] MEDS: guaiFENesin 12 HR 600 MG TABCR 1200 MG PO (20:33)
[2022-07-02] MEDS: LEVALBUTEROL NEB 1.25 MG/3 ML INHALATION (21:18)
[2022-07-03] VITALS (19 sets, daily range): BP systolic 102–138; BP diastolic 53–84; PULSE 86–155; RESP 18–20; TEMP 36.4–36.8; O2SAT 87–94
[2022-07-03] MEDS: methylPREDNISolone SOD SUCC 125 MG VIAL 20 MG IV PUSH ×2 (00:35→05:37)
[2022-07-03] MEDS: LEVALBUTEROL NEB 1.25 MG/3 ML INHALATION ×5 (01:09→16:04)
[2022-07-03] MEDS: IPRATROPIUM BR 0.02% INH SOLN 0.5 MG/2.5 ML VIAL INHALATION ×5 (01:09→16:04)
[2022-07-03 07:37] LABS: Hemoglobin 15.7 g/dL (12.0-15.0); Immature Granulocyte Absolute 0.02 K/mm3 (0.00-0.031); Immature Granulocyte Percent A 0.5 % (0-0.5); Immature Platelet Fraction Pct 4.4 % (0.9-11.2); Lymphocytes Absolute Auto 0.42 K/mm3 (0.9-3.2); Lymphocytes Percent Auto 10.1 % (18.3-44.2); Mean Corpuscular HGB Conc 31.4 g/dl (32-36); Mean Corpuscular Hemoglobin 30.8 pg (26-34); Mean Corpuscular Volume 98.2 fl (80-100); Mean Platelet Volume 10.4 fl (7.4-10.4); Monocytes Absolute Auto 0.1 K/mm3 (0.1-0.6); Monocytes Percent Auto 2.2 % (2.6-8.5); Neutrophils Absolute Auto 3.6 K/mm3 (1.3-6.7); Neutrophils Percent Auto 87.2 % (45.5-73.1); Platelet Count Result 94 k/mm3 (150-375); Red Blood Count 5.09 M/mm3 (4.2-5.4); Red Cell Distribution Width 14.6 % (11.5-14.5); White Blood Count 4.2 K/mm3 (4.5-10.0)
[2022-07-03 08:00] LABS: Lactic Acid Reflex 0.9 mmol/L (0.7-2.0)
[2022-07-03 08:05] LABS: Alanine Aminotransferase 38 U/L (6-35); Albumin Level 3.4 g/dL (3.5-5.1); Alkaline Phosphatase 118 U/L (38-126); Anion Gap 2 mmol/L (8-16); Aspartate Amino Transferase 39 U/L (14-36); Bilirubin,Total 0.9 mg/dL (0.2-1.3); Blood Urea Nitrogen 15 mg/dL (7-17); Carbon Dioxide 36 mmol/L (22-30); Chloride 98 mmol/L (98-107); Estimated CRCL calculation 67 ml/min; Estimated Glomerular Filt Rate > 60; Glucose 141 mg/dL (65-110); Potassium 3.8 mmol/L (3.4-5.0); Sodium 136 mmol/L (137-145)
[2022-07-03] MEDS: LOVASTATIN 20 MG TABLET PO (08:51)
[2022-07-03] MEDS: OMEGA 3 POLYUNSAT FATTY ACIDS 1 GM CAP PO (08:51)
[2022-07-03] MEDS: guaiFENesin 12 HR 600 MG TABCR 1200 MG PO ×2 (08:52→21:34)
[2022-07-03] MEDS: FUROSEMIDE INJ 40 MG/4 ML VIAL IV PUSH (08:52)
[2022-07-03] MEDS: MELOXICAM 7.5 MG TABLET 15 MG PO (08:52)
--- NOTE | 2022-07-03 10:03 | PM.PNPUL ---
Progress Note: A&P Assessment and Plan (1) Chronic obstructive pulmonary disease: Code(s): J44.9 - Chronic obstructive pulmonary disease, unspecified Status: Acute Assessment and Plan: patient carries a diagnosis of COPD with a 26 pack year history of tobacco smoking, quit 6 days ago, CT scan of the chest shows apical predominant moderate centrilobular emphysema. At baseline she can walk 2 blocks. The patient was in the process of getting home O2 set up for hypoxemia. ABG on 4 L nasal cannula 7.35/53/80. I will eventually repeat a blood gas to assess her hypercarbia Currently the patient presents after an eye operation for bleeding from the eyelid and she also had shortness of breath, wheezing, no change in her cough and improved phlegm over the last 6 days since she quit smoking. She was treated for COPD exacerbation with bronchodilators, Solu-Medrol. the patient is also find to have right middle lobe collapse. The patient may be having a COPD exacerbation and at this time I will decrease the Solu-Medrol to 20 mg IV q.6, I will continue albuterol and ipratropium nebulizers q.4 hours for bronchospasm as well as mucus plugging, I will initiate azithromycin for possible tracheobronchitis. I will also add Mucinex 1200 mg p.o. b.i.d., vest therapy and Cornet flutter valve to help with sputum expectoration. I will repeat a chest x-ray in the morning. currently patient is on 2 L nasal cannula at rest with saturations 91 and 92%. patient presents with edema, orthopnea, nocturia 2-3 times a night with no paroxysmal nocturnal dyspnea. Agree with echocardiogram. LE dopplers, and aggressive diuresis per hospitalist team. 07/03 patient states her breathing is better. The patient's daughter is in the room and states she is breathing better than she has in the last few months. There has been no further I bleeding. She does have some shortness of breath at rest, very little cough and has produced 1 clear yellow expectorations. She has no wheezes. White blood cell count 4.2, creatinine 0.5, saturations on 6 L nasal cannula is 91%. Chest x-ray demonstrates re-expanded right middle lobe. Per bedside nurse patient's code status changed to DNR Plan: No wheezes today, I will change Solu-Medrol to prednisone 40 mg p.o. q.day, I will continue azithromycin 500 mg q.day, day 2, continue levalbuterol and ipratropium nebulizers q.4 hours and guaifenesin 1200 mg p.o. b.i.d.. Chest x-ray with re-expanded right middle lobe and I willcontinue IS and discontinue the vest vibratory therapy and her Cornet flutter valve. Patient currently on 6 L nasal cannula saturations 91 and I will continue this and check an overnight oximetry on 6 L. Patient had an ABG on 4 L nasal cannula 7.35/53/80 on admission and I will repeat this once her COPD and fluid overload are better treated. Will follow with you. (2) Lung collapse: Code(s): J98.19 - Other pulmonary collapse Status: Acute Assessment and Plan: 07/02 CT scan demonstrates right middle lobe collapse with mild mediastinal lymphadenopathy. She has a chronic cough and actually has improved phlegm since last Wednesday when she quit smoking. I will treat her aggressively for mucus plugging with bronchodilators, antibiotics, guaifenesin, Cornet flutter valve and vest therapy. I will chest cut edge portable chest x-ray in the morning and if there is no response by tomorrow I will add dornase. 07/03 Chest x-ray demonstrates re-expanded right middle lobe with increased interstitial markings. (3) Fluid overload: Code(s): E87.70 - Fluid overload, unspecified Status: Acute Assessment and Plan: She presetned with increased edema in her legs and orthopnea.? BNP 9420 ABG on 4 L was 7.35/53/ 80.? CT scan consistent with pulmonary edema. she has improved with diuresis. Echocardiogram demonstrates LVEF 15-20%, grade 2 diastolic dysfunction, moderately enlarged left atri
[2022-07-03] MEDS: predniSONE 20 MG TABLET 40 MG PO (12:15)
--- NOTE | 2022-07-03 12:19 | PM.CNCAR ---
Assessment and Plan Assessment and plan (1) Systolic dysfunction: Code(s): I51.9 - Heart disease, unspecified Status: Acute Plan this is a 72-year-old woman who has been found to have significant systolic left ventricular dysfunction by echo after she presents to the hospital here with bleeding from her eyelid. Obviously her chief complaints are not those of decompensated heart failure. She does have some edema but no other evidence of acute decompensation in heart failure. The most likely etiology of this LV dysfunction of course would be ischemic disease given her longstanding history of smoking but this could also certainly be a nonischemic process. The patient following admission yesterday has made the decision to wished DNR orders to be on her chart. This is documented in the rack loader no from today but not not yet reflected in the orders. For this reason I believe we would recommend conservative medical therapy of her systolic left ventricular dysfunction. I am going to shift her back to oral furosemide in hopes of avoiding over-diuresis and hypotension. I will add Entresto and spironolactone to her regimen because of her systolic heart failure. Her lung disease and physical exam suggest to me she would probably poorly tolerate beta-kelly therapy so I am not going to start that at this point. We will not be conducting an ischemic workup in this lady who is indicating wishes for DNR orders. Will follow her with you during this hospital stay. Fazal Sam MD [facility] History of Present Illness History of Present Illness Consult date/time: 07/03/22 12:19 Reason For Visit: CHF Exacerbation,Hypoxia,RML Collapse Narrative: this is a 72-year-old woman I am seeing this afternoon at the request of the hospitalist because of left ventricular systolic dysfunction noted on echocardiogram the apparently was done yesterday. The patient says she is not known to have any cardiac problems in the past that she can recall. She has been told by her physicians in the past that she does have COPD because of longstanding cigarette smoking. She came to the emergency room yesterday interestingly because she was bleeding from her eyelid after a recent procedure done at [facility] to have a cyst removed from her eyelid as an outpatient. The patient was found to be hypoxemic while she was in the emergency room being evaluated for this and the decision was made to hospitalize her. According to the chart she was found to have need for home oxygen this however has not yet been set up. Her oxygen saturations in the emergency room were low although according to the record shortness of breath was not a reason she came to the hospital in the 1st place. While she has been hospitalized an echocardiogram was done which was interpreted by Dr. Love as demonstrating left ventricular enlargement and severe systolic dysfunction with an ejection fraction estimated to be 15-20%. There was no significant valvular dysfunction as result of this we have been consulted is to see her. Her admitting chest x-ray shows findings compatible with emphysema/ COPD as well as right middle lobe collapse. Follow-up Chest x-ray today demonstrates expansion of her right middle lobe. The patient was seated in her bed eating her lunch did was in no distress of any kind when I came in to see her. She does have some lower extremity edema which she says has been chronic and she can not really say is worsening recently. She is not experiencing any orthopnea or PND. She denies any symptoms of chest pain. Review of Systems Constitutional: Constitutional: Reports fatigue and Reports lethargy Eyes: Eyes: Reports no additional eye complaints ENT: Reports system reviewed and no additional complaints, except as documented Cardiovascular: Cardiovascular: Reports no additional cardiovascular complaints Respiratory: Respiratory: Reports dyspnea on exertion Gastroi
--- NOTE | 2022-07-03 12:28 | PM.IMPN ---
Progress Note: A&P Assessment and Plan (1) CHF (congestive heart failure), NYHA class I: Code(s): I50.9 - Heart failure, unspecified Status: Acute Assessment and Plan: Continue with IV Lasix Please monitor closely is patient's blood pressure is low. I do not see a recent echo so I will order 1. 07/03/2022 interval history: patient with longs history of smoking presented with shortness of breath most likely multi factorial as patient has COPD and in exacerbation being treated with methlyprednisone 20mg q6, broncho dilators, azithromycin for atypical pneumonia, also severe cardiomyopathy with EF of 15-20% seen by poultry raiser since patient is DNR and patient does not desire any ischemic workup started patient on Ensteresto and spironolactone, will monitor, patient will need LifeVest prior to discharge, patient both daughters are present gave updates, will monitor and PT/OT evaluate the patient, will benefit with rehab, (2) Chronic obstructive pulmonary disease: Code(s): J44.9 - Chronic obstructive pulmonary disease, unspecified Status: Acute Assessment and Plan: The patient stated that she is waiting to get oxygen for the last 6 months and is requiring oxygen at home. A home O2 study has been placed. To see if she qualifies for home O2. The patient was placed on Solu-Medrol Continue with nebulizer treatments. ER provider had consulted Dr. Stratton office analyst (3) High cholesterol: Code(s): E78.00 - Pure hypercholesterolemia, unspecified Status: Acute Assessment and Plan: Continue with lovastatin (4) Schizophrenia: Code(s): F20.9 - Schizophrenia, unspecified Status: Acute Assessment and Plan: Continue with home medications. Plan Recent right eye surgery where she had a cyst removed from the right eyelid. Continue with patient home medications. Erythromycins eye ointment is non formulary so she need to use her own. Subjective Date/time seen: 07/03/22 12:28 eye problem Narrative: This is a 72-year-old female patient who came to the emergency room due to bleeding from her right eyelid.? The patient had a cyst removed yesterday by the research interviewer at [facility] peer she noticed bleeding today from not right eyelid.? She does not have any pain are change in vision.? The patient's right I did stop bleeding on its own.? Upon arrival to the emergency room the patient was found to be hypoxic.? The patient's SpO2 was found to be 77 room air.? She does have known COPD.? Patient had also has increased edema to her lower extremities.? She stated that her legs have been swollen for the last year.? No fever chills.? No nausea vomiting or diarrhea.? No orthopnea.? H&H of 17.4 and 35.4.? Platelets 101.? BNP is 9420.? Chest x-ray read as the following?Enlargement of right hilum suspicious for lymphadenopathy versus enlarged pulmonary artery. Chest CT is recommended. 2. Mild pulmonary edema. 3. Small pleural effusions. 4. Cardiomegaly. Chest CT was read as the following. Mild pulmonary edema. 2. Small pleural effusions. 3. Moderate emphysema. 4. Complete collapse of right lung middle lobe. 5. Cardiomegaly. 6. The patient mild mediastinal lymphadenopathy, likely reactive. The patient was placed on oxygen at 5 L per nasal cannula.? The patient stated that she is waiting for her home oxygen and has been waiting for 6 months now and has not been able to get her oxygen. Patient was given a nebulizer treatment and Lasix in the emergency room. 07/03/2022 interval history: patient with longs history of smoking presented with shortness of breath most likely multi factorial as patient has COPD and in exacerbation being treated with methlyprednisone 20mg q6, broncho dilators, azithromycin for atypical pneumonia, also severe cardiomyopathy with EF of 15-20% seen by poultry raiser since patient is DNR and patient does not desire any ischemic workup started patient on Ensteresto and spironol
--- NOTE | 2022-07-03 17:35 | PC.NURSE ---
Approximately 0900, this RN assessed pt this AM. While talking with her, she shared that she had bed sores . Pt stated they were on her bottom. Assessed pt coccyx and sacrum; noted a non-blanchable area of intact skin. Educated pt and family on importance of turning and repositioning. Documented with my morning assessment documentaton. Wound RN by to verify. Pictures taken later in afternoon and mepilex applied.
--- NOTE | 2022-07-03 19:42 | PC.NURSE ---
Pt was on scheduled nebs. With each neb treatment, pt heart rate increased by 30-40 points. Pt asymptomatic. At 1600, pt tach at 160s. made aware. Given cardio/resp conditions, changed nebs to PRN.
[2022-07-03] MEDS: SALINE 0.65% NAS SOLN 44 ML BTL 2 SPRAY NASAL (21:34)
[2022-07-03] MEDS: SACUBITRIL/VALSARTAN 24-26 MG TABLET 1 TAB PO (21:34)
[2022-07-03] MEDS: SODIUM CHLORIDE NASAL GEL 14.1 GM 1 APPLIC NASAL (21:34)
[2022-07-04] VITALS (10 sets, daily range): BP systolic 101–124; BP diastolic 54–61; PULSE 51–100; RESP 16–22; TEMP 36.2–36.6; O2SAT 94–95
--- NOTE | 2022-07-04 02:40 | PCRCNOTE ---
Pt placed on Apnea link with 6L NC.
--- NOTE | 2022-07-04 06:59 | PM.PNPUL ---
Progress Note: A&P Assessment and Plan (1) Chronic obstructive pulmonary disease: Code(s): J44.9 - Chronic obstructive pulmonary disease, unspecified Status: Acute Assessment and Plan: patient carries a diagnosis of COPD with a 26 pack year history of tobacco smoking, quit 6 days ago, CT scan of the chest shows apical predominant moderate centrilobular emphysema. At baseline she can walk 2 blocks. The patient was in the process of getting home O2 set up for hypoxemia. ABG on 4 L nasal cannula 7.35/53/80. I will eventually repeat a blood gas to assess her hypercarbia Currently the patient presents after an eye operation for bleeding from the eyelid and she also had shortness of breath, wheezing, no change in her cough and improved phlegm over the last 6 days since she quit smoking. She was treated for COPD exacerbation with bronchodilators, Solu-Medrol. the patient is also find to have right middle lobe collapse. The patient may be having a COPD exacerbation and at this time I will decrease the Solu-Medrol to 20 mg IV q.6, I will continue albuterol and ipratropium nebulizers q.4 hours for bronchospasm as well as mucus plugging, I will initiate azithromycin for possible tracheobronchitis. I will also add Mucinex 1200 mg p.o. b.i.d., vest therapy and Cornet flutter valve to help with sputum expectoration. I will repeat a chest x-ray in the morning. currently patient is on 2 L nasal cannula at rest with saturations 91 and 92%. patient presents with edema, orthopnea, nocturia 2-3 times a night with no paroxysmal nocturnal dyspnea. Agree with echocardiogram. LE dopplers, and aggressive diuresis per hospitalist team. 07/03 patient states her breathing is better. The patient's daughter is in the room and states she is breathing better than she has in the last few months. There has been no further I bleeding. She does have some shortness of breath at rest, very little cough and has produced 1 clear yellow expectorations. She has no wheezes. White blood cell count 4.2, creatinine 0.5, saturations on 6 L nasal cannula is 91%. Chest x-ray demonstrates re-expanded right middle lobe. Per bedside nurse patient's code status changed to DNR Plan: No wheezes today, I will change Solu-Medrol to prednisone 40 mg p.o. q.day, I will continue azithromycin 500 mg q.day, day 2, continue levalbuterol and ipratropium nebulizers q.4 hours and guaifenesin 1200 mg p.o. b.i.d.. Chest x-ray with re-expanded right middle lobe and I willcontinue IS and discontinue the vest vibratory therapy and her Cornet flutter valve. Patient currently on 6 L nasal cannula saturations 91 and I will continue this and check an overnight oximetry on 6 L. Patient had an ABG on 4 L nasal cannula 7.35/53/80 on admission and I will repeat this once her COPD and fluid overload are better treated. 07/04 patient slept well last night on 6 L nasal cannula. She states her breathing is back to normal and better than it has been awhile. Patient has been walking to the bathroom and her dyspnea on his exertion is better per the patient and per the daughter in the room. Patient has no fever, no phlegm, no hemoptysis and mild cough. Saturations are 91% on 6 L. patient had tachyarrhythmia and nebulized leave albuterol and ipratropium were stopped. Overnight oximetry on 6 L nasal cannula with average saturation 90%, low saturation 75%, time with saturation less than or equal to 88% was 134 minutes or 29% of the monitored time, oxygen desaturation index was 0.1. Plan: Continue prednisone 40 mg a day, day 3. Continue azithromycin, day 3. Starting incruse ellipta today. Continue guaifenesin 1200 mg p.o. b.i.d. Patient remains hypoxic at night on 6 L. I will check and bubble study today to exclude right to left shunt. I will repeat ABG today to reassess hypercarbia. I will repeat overnight oximetry tonight on 8 L nasal cannula. Will follow with you. (2) Lung collapse: Code(
[2022-07-04 07:13] LABS: Hematocrit 51.7 % (37.0-47.0); Hemoglobin 16.4 g/dL (12.0-15.0); Immature Platelet Fraction Pct 4.9 % (0.9-11.2); Mean Corpuscular HGB Conc 31.7 g/dl (32-36); Mean Corpuscular Hemoglobin 30.7 pg (26-34); Mean Corpuscular Volume 96.8 fl (80-100); Mean Platelet Volume 10.5 fl (7.4-10.4); Platelet Count Result 114 k/mm3 (150-375); Red Blood Count 5.34 M/mm3 (4.2-5.4); Red Cell Distribution Width 14.9 % (11.5-14.5); White Blood Count 8.9 K/mm3 (4.5-10.0)
[2022-07-04 07:53] LABS: Alveolar/Arterial O2 Gradient 178.4 mmHg; Base Excess ABG 7.8 mEq/l (+/-2.0); Fractional Inspired Oxygen 44 %; HCO3 ABG 34.6 mEq/l (22.0-26.0); Oxygen Content ABG 22.2 %vol (16.0-22.0); Oxygen Saturation ABG 94.4 % (95.0-100.0); Oxyhemoglobin 92.5 % THb (90.0-100.0); PCO2 ABG 55.4 mmHg (35.0-45.0); PO2 ABG 72.2 mmHg (80.0-100.0); PO2 FiO2 Ratio Arterial Blood 1.64 %; Total Hemoglobin 17.1 g/dL (12.0-18.0); pH ABG 7.414 (7.350-7.450)
[2022-07-04 07:54] LABS: Device NASAL CANNULA; Site Drawn RIGHT BRACHIAL
[2022-07-04] MEDS: predniSONE 20 MG TABLET 40 MG PO (09:05)
[2022-07-04] MEDS: guaiFENesin 12 HR 600 MG TABCR 1200 MG PO ×2 (09:05→21:09)
[2022-07-04] MEDS: LOVASTATIN 20 MG TABLET PO (09:05)
[2022-07-04] MEDS: SPIRONOLACTONE 25 MG TABLET PO (09:06)
[2022-07-04] MEDS: SACUBITRIL/VALSARTAN 24-26 MG TABLET 1 TAB PO ×2 (09:06→21:16)
[2022-07-04] MEDS: UMECLIDINIUM BROMIDE 62.5 MCG ELLIPTA 1 PUFF INHALATION (09:06)
[2022-07-04] MEDS: OMEGA 3 POLYUNSAT FATTY ACIDS 1 GM CAP PO (09:06)
[2022-07-04 09:57] LABS: Anion Gap 2 mmol/L (8-16); Blood Urea Nitrogen 19 mg/dL (7-17); Calcium 7.9 mg/dL (8.4-10.2); Carbon Dioxide 35 mmol/L (22-30); Chloride 98 mmol/L (98-107); Estimated CRCL calculation 88 ml/min; Estimated Glomerular Filt Rate > 60; Glucose 195 mg/dL (65-110); Magnesium 1.8 mg/dL (1.6-2.3); Sodium 135 mmol/L (137-145)
[2022-07-04 09:58] LABS: NT Pro B Type Natriuretic Pept 3310 pg/mL (19.9-100)
--- NOTE | 2022-07-04 13:12 | PC.NURSE ---
Dr. Stratton notfied that the patient and patient's family are refusing the bubble study. Dr. Faulkner, hospitalist also aware.
--- NOTE | 2022-07-04 13:50 | PM.IMPN ---
Progress Note: A&P Assessment and Plan (1) CHF (congestive heart failure), NYHA class I: Code(s): I50.9 - Heart failure, unspecified Status: Acute Assessment and Plan: Continue with IV Lasix Please monitor closely is patient's blood pressure is low. I do not see a recent echo so I will order 1. 07/04/2022 interval history: patient with longs history of smoking presented with shortness of breath most likely multi factorial as patient has COPD and in exacerbation being treated with methlyprednisone 20mg q6, broncho dilators, azithromycin for atypical pneumonia, also severe cardiomyopathy with EF of 15-20% seen by travel physical therapist since patient is DNR and patient does not desire any ischemic workup, started patient on Ensteresto and spironolactone, will monitor, patient will need LifeVest prior to discharge, patient both daughters are present gave updates, will monitor and PT/OT evaluate the patient, patient remains clinically stable, will encourage patient to ambulate with assistance and oxygen. will benefit with rehab, (2) Chronic obstructive pulmonary disease: Code(s): J44.9 - Chronic obstructive pulmonary disease, unspecified Status: Acute Assessment and Plan: The patient stated that she is waiting to get oxygen for the last 6 months and is requiring oxygen at home. A home O2 study has been placed. To see if she qualifies for home O2. The patient was placed on Solu-Medrol Continue with nebulizer treatments. ER provider had consulted Dr. Stratton bilingual social worker (3) High cholesterol: Code(s): E78.00 - Pure hypercholesterolemia, unspecified Status: Acute Assessment and Plan: Continue with lovastatin (4) Schizophrenia: Code(s): F20.9 - Schizophrenia, unspecified Status: Acute Assessment and Plan: Continue with home medications. Plan Recent right eye surgery where she had a cyst removed from the right eyelid. Continue with patient home medications. Erythromycins eye ointment is non formulary so she need to use her own. Subjective Date/time seen: 07/04/22 13:50 07/04/2022 interval history: patient with longs history of smoking presented with shortness of breath most likely multi factorial as patient has COPD and in exacerbation being treated with methlyprednisone 20mg q6, broncho dilators, azithromycin for atypical pneumonia, also severe cardiomyopathy with EF of 15-20% seen by travel physical therapist since patient is DNR and patient does not desire any ischemic workup, started patient on Ensteresto and spironolactone, will monitor, patient will need LifeVest prior to discharge, patient both daughters are present gave updates, will monitor and PT/OT evaluate the patient, patient remains clinically stable, will encourage patient to ambulate with assistance and oxygen. will benefit with rehab, Review of Systems Review of Systems: All systems reviewed & are unremarkable except as noted in HPI and below Exam Narrative: Patient is comfortable, NAD HEENT: eyes are clear and none icteric LUNGS: Normal respiratory effort ABD: Not distended Lower extremities: no edema SKIN: nonjaundiced Neuro: grossly intact. Objective Data Vital Signs Vital Signs: Vital Signs - 24 hr 07/03/22 14:00 07/03/22 16:04 07/03/22 16:19 Temperature 97.9 F Pulse Rate 100 95 155 H Respiratory Rate 20 20 20 Blood Pressure 102/53 L Pulse Oximetry 91 Oxygen Delivery Oxygen Flow Rate 07/03/22 16:00 07/03/22 22:00 07/03/22 20:45 Temperature 98.2 F Pulse Rate 117 H 94 113 H Respiratory Rate 18 Blood Pressure 109/53 L Pulse Oximetry 91 Oxygen Delivery Oxygen Flow Rate 07/04/22 00:00 07/04/22 04:00 07/04/22 06:00 Temperature 97.4 F L Pulse Rate 90 92 80 Respiratory Rate 22 H Blood Pressure 101/54 L Pulse Oximetry 94 Oxygen Delivery Oxygen Flow Rate 07/04/22 09:05 Temperature Pulse Rate Respiratory Rate Blood Pressure Pulse Oxim
[2022-07-04] MEDS: SODIUM CHLORIDE NASAL GEL 14.1 GM 1 APPLIC NASAL (21:15)
[2022-07-05] VITALS (11 sets, daily range): BP systolic 93–117; BP diastolic 57–59; PULSE 72–95; RESP 16–18; TEMP 36.1–36.6; O2SAT 89–97
[2022-07-05 06:45] LABS: Hematocrit 53.2 % (37.0-47.0); Hemoglobin 16.7 g/dL (12.0-15.0); Immature Platelet Fraction Pct 3.6 % (0.9-11.2); Mean Corpuscular HGB Conc 31.4 g/dl (32-36); Mean Corpuscular Hemoglobin 31.4 pg (26-34); Mean Platelet Volume 10.1 fl (7.4-10.4); Platelet Count Result 121 k/mm3 (150-375); Red Blood Count 5.32 M/mm3 (4.2-5.4); Red Cell Distribution Width 15.5 % (11.5-14.5); White Blood Count 6.9 K/mm3 (4.5-10.0)
[2022-07-05 06:56] LABS: Anion Gap -4 mmol/L (8-16); Blood Urea Nitrogen 13 mg/dL (7-17); Calcium 7.6 mg/dL (8.4-10.2); Carbon Dioxide 39 mmol/L (22-30); Chloride 103 mmol/L (98-107); Estimated CRCL calculation 83 ml/min; Estimated Glomerular Filt Rate > 60; Glucose 85 mg/dL (65-110); Potassium 4.1 mmol/L (3.4-5.0); Sodium 138 mmol/L (137-145)
[2022-07-05] MEDS: UMECLIDINIUM BROMIDE 62.5 MCG ELLIPTA 1 PUFF INHALATION (08:29)
[2022-07-05] MEDS: SACUBITRIL/VALSARTAN 24-26 MG TABLET 1 TAB PO (09:02)
[2022-07-05] MEDS: predniSONE 20 MG TABLET 40 MG PO (09:02)
[2022-07-05] MEDS: SPIRONOLACTONE 25 MG TABLET PO (09:02)
[2022-07-05] MEDS: LOVASTATIN 20 MG TABLET PO (09:02)
[2022-07-05] MEDS: SALINE 0.65% NAS SOLN 44 ML BTL 2 SPRAY NASAL (09:03)
--- NOTE | 2022-07-05 09:04 | PM.PNPUL ---
Progress Note: A&P Assessment and Plan (1) Chronic obstructive pulmonary disease: Code(s): J44.9 - Chronic obstructive pulmonary disease, unspecified Status: Acute Assessment and Plan: patient carries a diagnosis of COPD with a 26 pack year history of tobacco smoking, quit 6 days ago, CT scan of the chest shows apical predominant moderate centrilobular emphysema. At baseline she can walk 2 blocks. The patient was in the process of getting home O2 set up for hypoxemia. ABG on 4 L nasal cannula 7.35/53/80. I will eventually repeat a blood gas to assess her hypercarbia. Patient declined free samples of inhalers, PFTs, and chest CT without contrast in the outpatient clinic on 06/23/2022. Currently the patient presents after an eye operation for bleeding from the eyelid and she also had shortness of breath, wheezing, no change in her cough and improved phlegm over the last 6 days since she quit smoking. She was treated for COPD exacerbation with bronchodilators, Solu-Medrol. the patient is also find to have right middle lobe collapse. The patient may be having a COPD exacerbation and at this time I will decrease the Solu-Medrol to 20 mg IV q.6, I will continue albuterol and ipratropium nebulizers q.4 hours for bronchospasm as well as mucus plugging, I will initiate azithromycin for possible tracheobronchitis. I will also add Mucinex 1200 mg p.o. b.i.d., vest therapy and Cornet flutter valve to help with sputum expectoration. I will repeat a chest x-ray in the morning. currently patient is on 2 L nasal cannula at rest with saturations 91 and 92%. patient presents with edema, orthopnea, nocturia 2-3 times a night with no paroxysmal nocturnal dyspnea. Agree with echocardiogram. LE dopplers, and aggressive diuresis per hospitalist team. 07/03 patient states her breathing is better. The patient's daughter is in the room and states she is breathing better than she has in the last few months. There has been no further I bleeding. She does have some shortness of breath at rest, very little cough and has produced 1 clear yellow expectorations. She has no wheezes. White blood cell count 4.2, creatinine 0.5, saturations on 6 L nasal cannula is 91%. Chest x-ray demonstrates re-expanded right middle lobe. Per bedside nurse patient's code status changed to DNR Plan: No wheezes today, I will change Solu-Medrol to prednisone 40 mg p.o. q.day, I will continue azithromycin 500 mg q.day, day 2, continue levalbuterol and ipratropium nebulizers q.4 hours and guaifenesin 1200 mg p.o. b.i.d.. Chest x-ray with re-expanded right middle lobe and I willcontinue IS and discontinue the vest vibratory therapy and her Cornet flutter valve. Patient currently on 6 L nasal cannula saturations 91 and I will continue this and check an overnight oximetry on 6 L. Patient had an ABG on 4 L nasal cannula 7.35/53/80 on admission and I will repeat this once her COPD and fluid overload are better treated. 07/04 patient slept well last night on 6 L nasal cannula. She states her breathing is back to normal and better than it has been awhile. Patient has been walking to the bathroom and her dyspnea on his exertion is better per the patient and per the daughter in the room. Patient has no fever, no phlegm, no hemoptysis and mild cough. Saturations are 91% on 6 L. patient had tachyarrhythmia and nebulized leave albuterol and ipratropium were stopped. Overnight oximetry on 6 L nasal cannula with average saturation 90%, low saturation 75%, time with saturation less than or equal to 88% was 134 minutes or 29% of the monitored time, oxygen desaturation index was 0.1. Plan: Continue prednisone 40 mg a day, day 3. Continue azithromycin, day 3. Starting incruse ellipta today. Continue guaifenesin 1200 mg p.o. b.i.d. Patient remains hypoxic at night on 6 L. I will check and bubble study today to exclude right to left shunt. I will repeat ABG today to reassess hypercarbia
--- NOTE | 2022-07-05 11:02 | HOMEO2EVAL ---
Evaluation was performed at [facility] Home Oxygen Evaluation RC: Home Oxygen (O2) Evaluation Start: 07/05/22 08:34 Freq: ONCE Status: Active Protocol: RPE Activity Type Activity Date Activity User E-sign Co-sign Detail Recorded Client Recorded Date Recorded By Document 07/05/22 10:24 HNP [email or web address] 07/05/22 10:38 HNP Document 07/05/22 10:27 HNP [email or web address] 07/05/22 10:39 HNP Document 07/05/22 10:20 HNP [email or web address] 07/05/22 10:36 HNP 07/05/22 07/05/22 07/05/22 10:24 10:27 10:20 Home O2 Evaluation [Oxygen] -Test Phase Exercise Resting Resting -Oxygen Delivery Nasal Cannula Nasal Cannula Room Air -Oxygen Flow Rate (L/min) 6 6 [Pulse Oximetry] -Pulse Oximetry (90-100 %) 89 L 92 90 [Pulse Rate] -Pulse Rate (60-100 beats/min) 95 82 75 [Evaluation] -Activity Tolerance Good -Rating of Perceived Dyspnea (PD) +1 Mild, Noticeable to the Participant but Not to an Observer -Rate of Perceived Exertion (PE) 6 Very, very Query Text:Click the Protocol Button light to View the RPE Scale [Exercise] -Ambulation Distance (feet) 500 -Ambulation Distance (meters) 152.39 [Charges] -Treatment Charges O2 Evaluation - Inpatient
--- NOTE | 2022-07-05 14:41 | PM.DS ---
DS: Admitting Diagnosis Discharge Date 07/05/2022 Admitting Diagnosis Eye problem DS: Discharge Diagnosis Discharge Diagnosis (1) CHF (congestive heart failure), NYHA class I: Code(s): I50.9 - Heart failure, unspecified Status: Acute Assessment and Plan: Continue with IV Lasix Please monitor closely is patient's blood pressure is low. I do not see a recent echo so I will order 1. 07/04/2022 interval history: patient with longs history of smoking presented with shortness of breath most likely multi factorial as patient has COPD and in exacerbation being treated with methlyprednisone 20mg q6, broncho dilators, azithromycin for atypical pneumonia, also severe cardiomyopathy with EF of 15-20% seen by boiler plant operator since patient is DNR and patient does not desire any ischemic workup, started patient on Ensteresto and spironolactone, will monitor, patient will need LifeVest prior to discharge, patient both daughters are present gave updates, will monitor and PT/OT evaluate the patient, patient remains clinically stable, will encourage patient to ambulate with assistance and oxygen. will benefit with rehab, (2) Chronic obstructive pulmonary disease: Code(s): J44.9 - Chronic obstructive pulmonary disease, unspecified Status: Acute Assessment and Plan: The patient stated that she is waiting to get oxygen for the last 6 months and is requiring oxygen at home. A home O2 study has been placed. To see if she qualifies for home O2. The patient was placed on Solu-Medrol Continue with nebulizer treatments. ER provider had consulted Dr. Stratton seam closer (3) High cholesterol: Code(s): E78.00 - Pure hypercholesterolemia, unspecified Status: Acute Assessment and Plan: Continue with lovastatin (4) Schizophrenia: Code(s): F20.9 - Schizophrenia, unspecified Status: Acute Assessment and Plan: Continue with home medications. Plan Recent right eye surgery where she had a cyst removed from the right eyelid. Continue with patient home medications. Erythromycins eye ointment is non formulary so she need to use her own. DS: Summary Hospital Course Reason for hospitalization: eye problem Narrative: This is a 72-year-old female patient who came to the emergency room due to bleeding from her right eyelid.? The patient had a cyst removed yesterday by the [place] line attendant at [facility] peer she noticed bleeding today from not right eyelid.? She does not have any pain are change in vision.? The patient's right I did stop bleeding on its own.? Upon arrival to the emergency room the patient was found to be hypoxic.? The patient's SpO2 was found to be 77 room air.? She does have known COPD.? Patient had also has increased edema to her lower extremities.? She stated that her legs have been swollen for the last year.? No fever chills.? No nausea vomiting or diarrhea.? No orthopnea.? H&H of 17.4 and 35.4.? Platelets 101.? BNP is 9420.? Chest x-ray read as the following?Enlargement of right hilum suspicious for lymphadenopathy versus enlarged pulmonary artery. Chest CT is recommended. 2. Mild pulmonary edema. 3. Small pleural effusions. 4. Cardiomegaly. Chest CT was read as the following. Mild pulmonary edema. 2. Small pleural effusions. 3. Moderate emphysema. 4. Complete collapse of right lung middle lobe. 5. Cardiomegaly. 6. The patient mild mediastinal lymphadenopathy, likely reactive. The patient was placed on oxygen at 5 L per nasal cannula.? The patient stated that she is waiting for her home oxygen and has been waiting for 6 months now and has not been able to get her oxygen. Patient was given a nebulizer treatment and Lasix in the emergency room.? Hospital Course: patient with longs history of smoking presented with shortness of breath most likely multi factorial as patient has COPD and in exacerbation being treated with methlyprednisone 20mg q6, broncho dilators, azithromycin for atyp
[2022-07-07 20:36] LABS: Alpha-1-Antitrypsin, QN 172 mg/dL (83-199)
== END 2022-07-05 16:25 | disposition home or self-care (01) | DRG 140 ==
LOC: ANHED 09:53 → ANH3MEDSUR 13:25
PROVIDERS: Internal Medicine Pulmonary Disease; Nurse Practitioner; Admitting Provider Family Medicine; Emergency Provider Emergency Medicine; PCP Family Medicine; Visit Provider Family Medicine
DX: J44.0 Chronic obstructive pulmonary disease with (acute) lower respiratory infection (principal); J44.1 Chronic obstructive pulmonary disease with (acute) exacerbation; J18.9 Pneumonia, unspecified organism; H59.311 Postprocedural hemorrhage of right eye and adnexa following an ophthalmic procedure; J96.12 Chronic respiratory failure with hypercapnia; G62.9 Polyneuropathy, unspecified; I42.9 Cardiomyopathy, unspecified; I11.0 Hypertensive heart disease with heart failure; F20.9 Schizophrenia, unspecified; R13.10 Dysphagia, unspecified; I50.22 Chronic systolic (congestive) heart failure; J40 Bronchitis, not specified as acute or chronic; R09.02 Hypoxemia; E78.00 Pure hypercholesterolemia, unspecified; F31.9 Bipolar disorder, unspecified; J98.19 Other pulmonary collapse; M19.90 Unspecified osteoarthritis, unspecified site; Z66 Do not resuscitate; Z87.891 Personal history of nicotine dependence; Z98.49 Cataract extraction status, unspecified eye
CPT/HCPCS: 36415; 36600; 71045; 71046; 71250; 80048; 80053; 82103; 82104; 82805; 83605; 83735; 83880; 84443; 85025; 85027; 85055; 85610; 85730; 93005; 93306; 93970; 94618; 94640; 94667; 94668; 94669; 94762; 96365; 96366; 96374; 96375; 96376; 97161; 97165; 99285; A9270; G0378; G0379; J0456; J1940; J2930; J7512

== ENCOUNTER 2023-04-17 16:27 | Emergency (ER) | payer OTHER, SELFPAY ==
[2023-04-17 16:37] VITALS: BP 126/59; PULSE 100; RESP 16; TEMP 35.9; O2SAT 87
[2023-04-17 16:39] VITALS: BP 126/59; PULSE 100; RESP 16; TEMP 35.9; O2SAT 87
[2023-04-17 16:45] VITALS: O2SAT 89
--- NOTE | 2023-04-17 16:51 | ED.GENADULT ---
HPI - General Adult General Chief complaint: Upper Respiratory Infection Stated complaint: sinus issue, both ears bothersome Time Seen by Provider: 04/17/23 16:42 Source: patient Mode of arrival: ambulatory Limitations: no limitations History of Present Illness HPI narrative: 72-year-old female with history of COPD, CHF, presented for complaint of sinus congestion for over 3 weeks. She endorses the ears itching and she has a headache. She is taking saline nasal spray and has used vinegar/ alcohol into the ears. Denies increase in shortness of breath from baseline, wheezing, nausea, vomiting, diarrhea, fevers or chills. Patient admits she should wear oxygen, but does not bring it with her. Related Data Home Medications Medication Instructions Recorded Confirmed loxapine succinate 25 mg capsule 30 mg PO HS 05/18/19 04/17/23 tramadol 50 mg tablet 50 mg PO TID PRN Pain 05/18/19 04/17/23 Lactobacillus 1 cap PO DAILY 05/07/22 04/17/23 acidophilus-Bifidobac.animalis 2.5 billion cell capsule (Daily Probiotic) albuterol sulfate 2.5 mg/3 mL 2.5 mg inhalation DAILY PRN 05/07/22 04/17/23 (0.083 %) solution for nebulization Shortness Of Breath cranberry extract 250 mg tablet 250 mg PO DAILY 05/07/22 04/17/23 furosemide 20 mg tablet 20 mg PO DAILY 05/07/22 04/17/23 meloxicam 15 mg tablet 15 mg PO DAILY PRN Headache 05/07/22 04/17/23 omega-3 fatty acids 1,000 mg PO DAILY 05/07/22 04/17/23 sodium chloride 0.65 % nasal spray 2 spray intranasal BID 05/07/22 04/17/23 aerosol (Saline Nasal) lovastatin 20 mg tablet 20 mg PO DAILY 07/02/22 04/17/23 Allergies Allergy/AdvReac Type Severity Reaction Status Date / Time Penicillins Allergy Intermediate HIVES Verified 04/17/23 16:34 levofloxacin Allergy Nausea and Verified 04/17/23 16:34 Vomiting Review of Systems Review of Systems: CONSTITUTIONAL: Denies body aches, fever, chills, or sweats. EYES: Denies visual changes, redness, or discharge. ENT: reports rhinorrhea, congestion, otalgia. CARDIOVASCULAR: Denies chest pain, palpitations, or edema. RESPIRATORY: Reports cough, denies increase in sob, wheezing. SKIN: Denies rash, itching, or wounds. MUSCULOSKELETAL: Denies back pain, joint pain, or myalgia. NEUROLOGIC: Denies headache, numbness, tingling, or weakness. All systems reviewed & are unremarkable except as noted in HPI and below PMFSH Past Medical History Medical History Bipolar disorder CHF (congestive heart failure), NYHA class I Chronic obstructive pulmonary disease Dysphagia High cholesterol History of esophageal dilatation Hypertension Personal history of nicotine dependence Schizophrenia Surgical History Surgical History H/O eye surgery H/O tubal ligation History of cataract extraction Family History Family History Mother CHF (congestive heart failure), NYHA class I Father Mental disorder Social History Social History Social History: She lives with daughter and 4 grandkids she is disabled and she is . She had 10 children and only 9 are living. The patient stated that she just stopped smoking a couple days ago. Code status full code Smoking packs per day: 2 Smoking cigarettes per day: 40.0 Smoking status: Former smoker Tobacco type: cigarettes Smoking end date: 06/26/22 Alcohol intake: never Substance use: never Substance use type: does not use Lack of Transportation: No Lack of Food: Never True Current Housing: I Have Housing Concerned About Future Housing: No Difficulty Paying Gas/Electric Bills: No Difficulty Paying for Meds: No Currently Unemployed: No Education: High School Diploma/GED Difficulty w/ Childcare or Family Care: No Living arrangements: with family Gen
== END 2023-04-17 16:58 | disposition home or self-care (01) ==
PROVIDERS: Emergency Provider Nurse Practitioner Family; PCP Internal Medicine
DX: J06.9 Acute upper respiratory infection, unspecified (principal); Z87.891 Personal history of nicotine dependence; J44.9 Chronic obstructive pulmonary disease, unspecified; E78.00 Pure hypercholesterolemia, unspecified; I11.0 Hypertensive heart disease with heart failure; I50.9 Heart failure, unspecified
CPT/HCPCS: 99213; G0463